=== PATIENT | male | born 1955 | race Caucasian/White ===

== ENCOUNTER → 2017-11-05 08:44 | Outpatient (CLI) | payer MEDICAID ==
[~2017-11-05 08:44] MED LIST: GABAPENTIN100 MG PO; GLUCOTROL 5 MG T5 MG; HYZAAR 100-25 T1 TAB PO; NORVASC5 MG PO; PERCOCET 5-3251 TAB PO; ZOCOR40 MG PO
[2017-12-28 19:00] VITALS: BMI 36.1
== END | disposition home or self-care (01) ==
LOC: D.MRI 08:44
DX: M54.16 Radiculopathy, lumbar region (principal)

== ENCOUNTER → 2017-11-19 09:08 | Outpatient (CLI) | payer MEDICAID ==
[2017-12-28 19:00] VITALS: BMI 36.1
== END | disposition home or self-care (01) ==
LOC: D.CT 09:08
DX: I71.4 Abdominal aortic aneurysm, without rupture (principal)

== ENCOUNTER 2017-12-28 05:00 | Inpatient (IN) | payer MEDICAID ==
[2017-12-27 10:49] LABS: BASOPHILS 0.2 % (0-2); EOSINOPHILS 0.8 % (0-7); HEMATOCRIT 41.1 % (42.0-54.0); HEMOGLOBIN 13.7 g/dL (13.5-17.5); IMMATURE GRANULOCYTES 0.2 % (0-5); LYMPHOCYTES 17.5 % (15-50); MCH 30.1 pg (26.0-34.0); MCHC 33.3 g/dL (31.0-37.0); MCV 90.3 fL (80.0-100.0); MEAN PLATELET VOLUME 9.5 fL (7.4-10.4); MONOCYTES 6.7 % (2-11); NEUTROPHILS 74.6 % (40-80); PLATELET COUNT 228 10x3/uL (130-400); RBC 4.55 10x6/uL (4.20-6.10); RDW 13.8 % (11.5-14.5); WBC 13.1 10x3/uL (4.8-10.8)
[2017-12-27 11:04] LABS: ALBUMIN 3.4 g/dL (3.4-5.0); ANION GAP 13.4 mmol/L (8-16); BILIRUBIN - TOTAL 0.28 mg/dL (0.2-1.3); CALCIUM 9.1 mg/dL (8.5-10.1); CARBON DIOXIDE 27.1 mmol/L (21.0-32.0); CREATININE - SERUM 1.3 mg/dL (0.6-1.3); POTASSIUM - SERUM 3.5 mmol/L (3.5-5.1); PROTEIN - SERUM 7.8 g/dL (6.4-8.2)
[2017-12-27 11:07] LABS: INR 1.04 (0.85-1.17); PROTIME 13.2 SECONDS (11.6-15.0)
[2017-12-27 11:08] LABS: APTT 33.7 SECONDS (22.8-39.4)
[2017-12-27 11:16] LABS: APPEARANCE CLEAR (CLEAR); BACTERIA FEW /hpf (NONE SEEN); BILIRUBIN NEGATIVE (NEGATIVE); COLOR YELLOW (YELLOW); EPITHELIAL CELLS OCC /hpf (0-5); GLUCOSE NEGATIVE (NEGATIVE); KETONE NEGATIVE (NEGATIVE); NITRITE NEGATIVE (NEGATIVE); PROTEIN NEGATIVE (NEGATIVE); UROBILINOGEN NORMAL (NORMAL); WHITE CELLS - URINE 0-5 /hpf (0-5)
[2017-12-28] VITALS (23 sets, daily range): BP systolic 99–190; BP diastolic 39–95; Ht 175.3 cm; Wt 109.2 kg
[~2017-12-28] VITALS: Ht 175.3 cm; Wt 109.2 kg
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
--- NOTE | ~2017-12-28 | OP ---
PATIENT NAME: RENETTA TONY III MEDICAL RECORD: [id number] :51 LOCATION:[id number] ADMISSION DATE:12/28/17 SURGEON: EDWIN ELLIS MD DATE OF OPERATION: 12/28/2017 SURGEON: Edwin Ellis MD PRODUCTION MATERIAL COORDINATOR: TONE Fraire OPERATIONS PERFORMED: 1. Endovascular repair, abdominal aortic aneurysm. 2. Right open femoral exposure. 3. Left femoral exposure. 4. Aortogram times 3. 5. Insertion of bifurcated endograft, aorta. 6. Insertion of suprarenal extension. 7. Aortic angioplasty times 4. PREOPERATIVE DIAGNOSES: Abdominal aortic aneurysm, iliac and femoral stenosis. POSTOPERATIVE DIAGNOSES: Abdominal aortic aneurysm, iliac and femoral stenosis. ANESTHESIA: General endotracheal anesthesia. ESTIMATED BLOOD LOSS: 50 cc with no Cell Saver for retransfusion. COMPLICATIONS: None. SPECIMENS: None. CONDITION: Stable. DISPOSITION: CV ICU. OPERATIVE FINDINGS: 1. Open exposure of right femoral with severe posterior plaque involving the origin of the profunda femoral artery, percutaneous left access with placement of a single ProGlide. 2. A 28 x 9 bifurcated AFX graft. 3. A 34 x 100 supra. 4. Aortic angioplasty with Reliant. 5. Audible Doppler signal in the superficial and profunda femoral after right femoral artery closure and audible bilateral posterior tibial Doppler. OPERATIVE INDICATION: Abdominal aortic aneurysm. PROCEDURE NOTE IN DETAIL: The patient was brought to the operative suite. General anesthesia was obtained. The patient was prepped and draped. Oblique incision made in the right groin. The common femoral, profunda femoral, and superficial femoral were dissected out and encircled with vessel loops as were several small branches. On the left side, access was obtained with ultrasound guidance. ProGlide was deployed and then a 7-Yi sheath was placed. Heparin was given. The 7-Yi sheath was placed on the right. On the left side, the snare catheter was placed and then on the right, the sheath was exchanged for a stiff wire and the AFX introduction system was placed and the main body was OPERATIVE REPORT [id number] RENETTA TONY III placed after grasping the contralateral wire. Left limb was deployed. Right limb was deployed. Suprarenal extension was placed. Pigtail was placed from the left. Aortogram performed. Suprarenal extension carefully landed with an extra aortogram. Then, the pigtail was reformed, placed in the appropriate position. Aortic angioplasty performed inside the graft and final aortogram performed with no evidence of endoleak and good position. The left-sided pigtail catheter was removed. On the right, the stiff wire was exchanged for a soft wire and then removed. The ProGlide was deployed on the left with no evidence of bleeding and then on the right, the introducer was removed. Inflow and backflow were occluded with vascular clamps. A 6-0 Prolene was used to repair the artery. Flow was restored. Good Doppler signal was noted. A total of 10,000 heparin had been given previously and 100 mg of protamine was given. There was no apparent bleeding. The area was irrigated with vancomycin irrigation and closed in 2 layers. The patient had Doppler posterior tibial pulses. To CV ICU, stable. TRANSINT:[id number] Voice Confirmation ID: [id number] DOCUMENT ID: [id number] EDWIN ELLIS MD at 1024 CC: IMANI BLACKBURN [id number] DICTATION DATE: 12/28/17 1026 [employer]PER[employer]OR [employer]WORK[employer]: 12/28/[address] [facility] [address] [place] [address]
[~2017-12-28 05:00] MED LIST changes: -PERCOCET 5-3251 TAB PO
[2017-12-28] MEDS ORDERED: PERCOCET 5-3251 TAB PO (10:11)
[2017-12-29] VITALS (13 sets, daily range): BP systolic 115–144; BP diastolic 48–64
[2017-12-29 05:59] LABS: MCH 29.2 pg (26.0-34.0); MCHC 32.4 g/dL (31.0-37.0); MCV 90.2 fL (80.0-100.0); MEAN PLATELET VOLUME 9.6 fL (7.4-10.4); RBC 3.66 10x6/uL (4.20-6.10); RDW 14.1 % (11.5-14.5); WBC 10.7 10x3/uL (4.8-10.8)
[2017-12-29 06:10] LABS: HEMOGLOBIN 10.7 g/dL (13.5-17.5)
[2017-12-29 06:27] LABS: CALC OSMOLALITY 280 mosm/kg (275-300); CALCIUM 7.9 mg/dL (8.5-10.1); CARBON DIOXIDE 27.3 mmol/L (21.0-32.0); CHLORIDE - SERUM 106 mmol/L (98-107); GLUCOSE 122 mg/dL (74-106); POTASSIUM - SERUM 3.7 mmol/L (3.5-5.1); SODIUM 140 mmol/L (136-145); UREA NITROGEN 15 mg/dL (7-18); eGFR NON AFRICAN AMERICAN 80 mL/min (90-120)
== END 2017-12-29 15:25 | disposition home or self-care (01) | DRG 269 ==
LOC: D.CVICU 05:00 → D.SDCHOLD 05:00 → D.CVICU 09:49
PROVIDERS: Thoracic Surgery (Cardiothoracic Vascular Surgery)
PROC: 04V03EZ Restriction of Abdominal Aorta with Branched or Fenestrated Intraluminal Device, One or Two Arteries, Percutaneous Approach (ICD-10-PCS; principal; 2017-12-28 07:30)
DX: I71.4 Abdominal aortic aneurysm, without rupture (principal); I70.213 Atherosclerosis of native arteries of extremities with intermittent claudication, bilateral legs; I10 Essential (primary) hypertension; E11.9 Type 2 diabetes mellitus without complications; E78.5 Hyperlipidemia, unspecified; Z87.891 Personal history of nicotine dependence

== ENCOUNTER → 2020-01-16 22:00 | Outpatient (CLI) | payer MEDICAID ==
[2017-12-28 19:00] VITALS: BMI 36.1
[~2020-01-16 22:00] MED LIST changes: +PERCOCET 5-3251 TAB PO
== END | disposition home or self-care (01) ==
LOC: D.LABREF 22:00
PROVIDERS: ATTEND Podiatrist Foot & Ankle Surgery
DX: L03.116 Cellulitis of left lower limb (principal)

== ENCOUNTER 2020-02-09 12:05 | Inpatient (IN) | payer MEDICARE ==
[~2020-02-09] VITALS: Ht 175.3 cm; Wt 91.7 kg
[2020-02-09] MEDS ORDERED: LIPITOR20 MG PO (12:34)
[2020-02-09] MEDS ORDERED: CARAFATE1 G PO (12:35)
[2020-02-09] MEDS ORDERED: LOPRESSOR25 MG PO (12:36)
[2020-02-09] MEDS ORDERED: CIPRO500 MG PO (12:36)
[2020-02-09] MEDS ORDERED: NYSTATIN100000 UN4 PO (12:37)
--- NOTE | 2020-02-09 12:41 | NUR ---
RECEIVED PATIENT FROM DR. SHINE. A&O. NO C/O PAIN. NO S/S OF ACUTE DISTRESS NOTED. AT BEDSIDE. DENIES ANY NEEDS AT THIS TIME. CALL LIGHT IN REACH. WILL CONTINUE TO MONITOR.
--- NOTE | 2020-02-09 13:30 | NUR ---
PATIENT IN ROOM. FAMILY AT BEDSIDE. FREE FROM SIGNS OF DISTRESS. NO PAIN OR NEEDS AT THIS TIME. WILL CONTINUE TO MONITOR.
[2020-02-09 13:38] LABS: BASOPHILS 0.2 % (0-2); EOSINOPHILS 0.1 % (0-7); HEMOGLOBIN 8.4 g/dL (13.5-17.5); IMMATURE GRANULOCYTES 10.4 % (0-5); LYMPHOCYTES 2.3 % (15-50); MCH 29.3 pg (26.0-34.0); MCHC 31.1 g/dL (31.0-37.0); MCV 94.1 fL (80.0-100.0); MEAN PLATELET VOLUME 9.8 fL (7.4-10.4); MONOCYTES 1.1 % (2-11); NEUTROPHILS 85.9 % (40-80); PLATELET COUNT 147 10x3/uL (130-400); RBC 2.87 10x6/uL (4.20-6.10); RDW 18.1 % (11.5-14.5); WBC 15.2 10x3/uL (4.8-10.8)
[2020-02-09 13:51] LABS: CALC OSMOLALITY 273 mosm/kg (275-300); CALCIUM 8.3 mg/dL (8.5-10.1); CARBON DIOXIDE 29.7 mmol/L (21.0-32.0); CHLORIDE - SERUM 102 mmol/L (98-107); GLUCOSE 153 mg/dL (74-106); POTASSIUM - SERUM 4.4 mmol/L (3.5-5.1); SODIUM 135 mmol/L (136-145); UREA NITROGEN 16 mg/dL (7-18); eGFR NON AFRICAN AMERICAN 79 mL/min (90-120)
--- NOTE | 2020-02-09 14:50 | NUR ---
TRIED TO GAIN IV ACCESS, TRIED IN LEFT FOREARM. VEIN RUPTURED. PATIENT TOLD THIS NURSE THAT HE WILL NOT BE STUCK AGAIN AND IF WE DON'T JUST ACCESS HIS PORT HE WAS LEAVING. THIS NURSE EXPLAINED TO THE PATIENT THAT ONCOLOGY HAS BEEN PAGED TO GET ORDER TO ACCESS PORT BUT UNTIL WE RECEIVE THE ORDER TO ACCESS PORT WE CANNOT. PATIENT VERY UPSET. THIS NURSE STEPPED OUT TO SPEAK WITH PHYSICIAN.
[2020-02-09 15:25] VITALS: BP 137/61; Ht 175.3 cm; Wt 91.7 kg
--- NOTE | 2020-02-09 15:45 | NUR ---
SPOKE TO DR. CASTRO OVER THE PHONE. EXPLAINED TO PHYSICIAN THAT PATIENT IS LEAVING AMA. PHYSICIAN STATED TO TRY TO GET PATIENT TO STAY FOR 1 DOSE OF IV ANTIBIOTIC AND THEN HE WOULD DC PATIENT HOME WITH HOME HEALTH. THIS NURSE EXPLAINED TO PATIENT THAT DR. CASTRO WANTED HIM TO HAVE ONE INFUSION OF IV ANTIBIOTICS AND THEN HE WOULD DC PATIENT HOME ON HOME HEALTH TO RECEIVE IV ANTIBIOTICS. PATIENT STATED, "NO! I AM GOING HOME." PATIENT SIGNED AMA FORM AND THIS NURSE TOOK PATIENT DOWNSTAIRS VIA WHEELCHAIR WITH .
== END 2020-02-09 16:21 | disposition left against medical advice (07) | DRG 639 ==
LOC: D.MS 12:05
PROVIDERS: ADMIT Podiatrist Foot & Ankle Surgery; ATTEND Podiatrist Foot & Ankle Surgery
DX: E11.621 Type 2 diabetes mellitus with foot ulcer (principal); E11.65 Type 2 diabetes mellitus with hyperglycemia; E11.40 Type 2 diabetes mellitus with diabetic neuropathy, unspecified; I10 Essential (primary) hypertension; I71.4 Abdominal aortic aneurysm, without rupture; G89.29 Other chronic pain; Z85.118 Personal history of other malignant neoplasm of bronchus and lung